=== PATIENT | female | born 1930 | race Caucasian/White ===

== ENCOUNTER → 2018-09-30 | Outpatient (CLI) | payer MEDICARE, BC ==
[~2018-09-30] MED LIST: ACETAMINOPHEN W1 TA6 PO; ALDACTONE 25MG25 M1 PO; AMOXICILLIN 50500 MG PO; ASPIRIN 32325 MG/TAB PO; BUSPAR10 MG PO; BUSPIRONE10 MG PO; BYSTOLIC10 MG PO; BYSTOLIC5 MG PO; COUMADIN 22.5 MG/TAB PO; COUMADIN 5MG5 MG/TAB PO; FERROUS SU325 MG/TAB PO; HCTZ 25MG TAB25 MG PO; HYDROCHLOR50 MG PO; INDERAL 10MG10 MG PO; INDERAL10 MG PO; LEXAPRO10 MG PO; LISINOPRIL20 MG PO; LOVASTATIN20 MG PO; LUNESTA1 MG PO; MULTAQ400 MG PO; NEXIUM 40MG40 MG PEG; NEXIUM 40MG40 MG PO; OGEN 0.6250.75 MG PO; OGEN PO; OMEGA 31000 MG PO; PAXIL 20MG20 MG PO; SYNTHROID0.1 MG PO; TIKOSYN0.125 MG PEG; TIKOSYN0.125 MG PO; TIKOSYN0.25 MG PO; VITAMIN C500 MG PO; estropipate PO
== END ==
LOC: COL.RAD 09:16
DX: K22.8 Other specified diseases of esophagus (principal); K44.9 Diaphragmatic hernia without obstruction or gangrene; Z95.2 Presence of prosthetic heart valve

== ENCOUNTER 2019-03-15 12:42 | Inpatient (IN) | payer MEDICARE, BC ==
[2019-03-15] VITALS (349 sets, daily range): BP systolic 135–145; BP diastolic 58–63; PULSE 69–73; TEMP 97.8–97.9; O2SAT 90–97
[~2019-03-15] VITALS: Ht 152.4 cm; Wt 68.3 kg
[2019-03-15 13:32] LABS: BASO # 0.1 (0.0-0.2); BASO % 1.3 % (0.0-2.0); EOS # 0.5 (0.0-0.7); EOS % 5.3 % (0-4.0); GRAN # 5.5 (1.4-6.5); HEMATOCRIT 36.2 % (37.0-47.0); HEMOGLOBIN 12.3 g/dl (12.5-16.0); LYMPH # 1.7 (1.2-3.4); LYMPH % 19.6 % (20.0-51.0); MEAN CELL VOLUME 91 fl (80.0-100.0); MEAN CORPUSCULAR HEMOGLOBIN 31 pg (27.0-31.0); MEAN CORPUSCULAR HGB CONC 34 g/dl (33.0-37.0); MEAN PLATELET VOLUME 8.8 fl (7.4-10.4); MONO # 0.8 (0.1-0.6); MONO % 9.5 % (1.7-9.3); PLATELET COUNT 315 K/mm3 (130-400); REDCELL DISTRIBUTION WIDTH-CV 14.1 % (11.5-14.5)
[2019-03-15 13:37] LABS: INR 3.1 (0.8-3.0); PROTHROMBIN TIME 37.4 SECONDS (9.7-12.8)
[2019-03-15 13:40] LABS: PARTIAL THROMBOPLASTIN TIME 43.9 SECONDS (26.0-37.0)
[2019-03-15] MEDS ORDERED: MELATIN 3 MG-11 TAB PO (13:40)
[2019-03-15] MEDS ORDERED: BUSPAR10 MG PO (13:41)
[2019-03-15] MEDS ORDERED: AMOXICILLIN 50500 MG PO (13:41)
[2019-03-15] MEDS ORDERED: TIKOSYN0.25 MG PO (13:42)
[2019-03-15] MEDS ORDERED: NEXIUM 40MG40 MG PO (13:42)
[2019-03-15] MEDS ORDERED: TYLENOL 325MG325 MG PO (13:42)
[2019-03-15] MEDS ORDERED: LEVOXYL0.1 MG PO (13:43)
[2019-03-15] MEDS ORDERED: COZAAR100 MG PO (13:43)
[2019-03-15] MEDS ORDERED: PAXIL 20MG20 MG PO (13:48)
[2019-03-15] MEDS ORDERED: ALDACTONE 25MG25 M1 PO (13:50)
[2019-03-15] MEDS ORDERED: COUMADIN4 MG PO (13:50)
[2019-03-15] MEDS ORDERED: TUMS500 MG (13:50)
[2019-03-15] MEDS ORDERED: PROBIOTIC-SUNMARK (13:51)
[2019-03-15 14:02] LABS: ALANINE AMINOTRANSFERASE 10 U/L (9-52); ALBUMIN 4.1 gm/dL (3.5-5.0); ALKALINE PHOSPHATASE 73 U/L (50-136); ANION GAP 8 mmol/L (7-16); AST,SGOT 26 U/L (15-37); BILIRUBIN,TOTAL 0.4 mg/dL (0.0-1.0); BLOOD UREA NITROGEN 14 mg/dL (7-17); CALCIUM 9.3 mg/dL (8.4-10.2); CARBON DIOXIDE 26 mmol/L (22-30); CHLORIDE 107 mmol/L (98-107); CREATININE, serum 0.87 (0.52-1.25); GLUCOSE 103 mg/dL (74-106); SODIUM 141 mmol/L (137-145)
[2019-03-15 14:14] LABS: TROPONIN-I < 0.012 ng/mL (0.000-0.035)
[2019-03-15 14:15] LABS: POTASSIUM 2.7 mmol/L (3.4-5.0)
[2019-03-15 14:38] LABS: MAGNESIUM 1.5 mg/dL (1.6-2.3)
--- NOTE | 2019-03-15 15:05 | NUR ---
Patient received in ICU room 4 connected to monitor, changed to gown, clothing/shoes placed in bag in closet. Wearing glasses. Daughter, Pat, assists with intake questions. Dr Medley in to assess.
[2019-03-15] MEDS ORDERED: PRESERVISION1 SGL PO (15:54)
[2019-03-15] MEDS ORDERED: TYLENOL PM EXTR1 TA1 PO (15:57)
[2019-03-15 22:48] LABS: CALCIUM 8.7 mg/dL (8.4-10.2); CREATININE, serum 0.78 (0.52-1.25); POTASSIUM 3.5 mmol/L (3.4-5.0)
[2019-03-16] VITALS (412 sets, daily range): BP systolic 114–162; BP diastolic 51–87; PULSE 68–84; TEMP 97.3–98.6; O2SAT 89–96
[2019-03-16 05:55] LABS: INR 2.6 (0.8-3.0); PROTHROMBIN TIME 31.6 SECONDS (9.7-12.8)
[2019-03-16 05:56] LABS: HEMOGLOBIN 10.7 g/dl (12.5-16.0); MEAN CELL VOLUME 92 fl (80.0-100.0); MEAN CORPUSCULAR HEMOGLOBIN 31 pg (27.0-31.0); MEAN CORPUSCULAR HGB CONC 34 g/dl (33.0-37.0); MEAN PLATELET VOLUME 8.8 fl (7.4-10.4); PLATELET COUNT 305 K/mm3 (130-400); RED BLOOD COUNT 3.46 M/mm3 (4.10-5.30); REDCELL DISTRIBUTION WIDTH-CV 14.3 % (11.5-14.5)
[2019-03-16 06:01] LABS: HEMATOCRIT 31.7 % (37.0-47.0)
[2019-03-16 06:02] LABS: CALCIUM 8.7 mg/dL (8.4-10.2); CREATININE, serum 0.76 (0.52-1.25); POTASSIUM 4.5 mmol/L (3.4-5.0)
[2019-03-16 06:14] LABS: MAGNESIUM 2.1 mg/dL (1.6-2.3)
[2019-03-16 06:32] LABS: BASOPHIL 1 % (0-2); EOSINOPHIL 5 % (0-4); LYMPHOCYTE 27 % (20.0-51.0); NEUTROPHILS 57 % (42.0-75.2); PLATELET ESTIMATE NORMAL (NORMAL)
--- NOTE | 2019-03-16 07:30 | NUR ---
Report received from Roshni HINDS and care resumed.
--- NOTE | 2019-03-16 08:32 | NUR ---
Pt receiving echo at this time. Dr Riggins was called and notified of consult. Will continue to follow.
--- NOTE | 2019-03-16 09:06 | NUR ---
Dr Escobar in to see pt at this time.
--- NOTE | 2019-03-16 11:31 | NUR ---
Initial visit; Patient states she is doing ok, just waiting for test results hoping to find out what is happening regarding her health. Patient has a good support system. School Plant Consultant wished her well.
--- NOTE | 2019-03-16 12:16 | NUR ---
Dr Riggins and Dr Thacker in to see pt at this time.
--- NOTE | 2019-03-16 12:58 | NUR ---
Pt to CT at this time.
--- NOTE | 2019-03-16 14:11 | NUR ---
SW met with patient to discuss discharge planning. Patient lives independently at home alone but reports her daughter/DPOA, Pat, lives close by in [place]. Patient's PCP is Dr Amanda Givens and [facility]. Patient's reports independence with all ADLs and she does not use any DME or home health services. Patient reports she does not have a copy of her DPOA-HC and he PCP does not either. Patient's reports she DPOA-HC is her daughter, Pat. Patient will be evaluated by PT and OT prior to discharge. SW will continue to follow.
--- NOTE | 2019-03-16 14:43 | NUR ---
Report called to Shilpa HINDS on medical floor. Pt to transfer to room 311. Will continue to follow.
--- NOTE | 2019-03-16 15:46 | NUR ---
Patient arrived to room 311 via wheelchair from ICU. Assisted to recliner, daughter is at bedside. Patient assisted to restroom, gait is steady, gait belt is in place. Stool specimen collected as ordered. Lungs are clear bilaterally. Heart rate is regular rate and rhythm. Abdomen is soft and nontender, bowel sounds are active to all quadrants. Skin is intact to coccyx. Does have skin tear to the right elbow, was undressed. Did apply steri strips and left open to air. No redness, warmth or drainage noted to are, bruising is observed. Does complain of pain to ribs, when up walking, no pain at rest. There is no edema noted to BLEs. Reviewed medications with daughter and she states they are correct. Patient does state she "dumps" after she eats each meal/snack. Ice water and tissues provided. Call light and personal items are within reach.
--- NOTE | 2019-03-16 19:40 | NUR ---
Shift assessment complete. Pt resting in bedside recliner, awake, a&o, cooperative c cares. 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 Pt denies any other c/o. INT patent. Tele in place. Pt denies further needs. Call light in reach, bed alarm on. Will continue to monitor.
[2019-03-17 04:26] VITALS: BP 121/76; PULSE 70; TEMP 97.8
[2019-03-17 06:10] LABS: BASO # 0.1 (0.0-0.2); BASO % 1.1 % (0.0-2.0); EOS # 0.4 (0.0-0.7); EOS % 5.5 % (0-4.0); GRAN # 4.3 (1.4-6.5); GRAN % 60.9 % (42.2-75.2); HEMOGLOBIN 11.2 g/dl (12.5-16.0); LYMPH # 1.5 (1.2-3.4); LYMPH % 21.2 % (20.0-51.0); MEAN CELL VOLUME 93 fl (80.0-100.0); MEAN CORPUSCULAR HEMOGLOBIN 31 pg (27.0-31.0); MEAN CORPUSCULAR HGB CONC 33 g/dl (33.0-37.0); MEAN PLATELET VOLUME 9.2 fl (7.4-10.4); MONO # 0.8 (0.1-0.6); PLATELET COUNT 287 K/mm3 (130-400); RED BLOOD COUNT 3.63 M/mm3 (4.10-5.30); REDCELL DISTRIBUTION WIDTH-CV 13.8 % (11.5-14.5)
[2019-03-17 06:12] LABS: HEMATOCRIT 33.6 % (37.0-47.0)
[2019-03-17 06:24] LABS: CREATININE, serum 0.78 (0.52-1.25); MAGNESIUM 1.8 mg/dL (1.6-2.3); POTASSIUM 4.2 mmol/L (3.4-5.0)
--- NOTE | 2019-03-17 07:00 | NUR ---
Patient is resting in bed on left side. Does arouse when addressed. Respirations are even and nonlabored. Call light and personal items are within reach.
[2019-03-17 08:14] VITALS: BP 131/45; PULSE 48; TEMP 98.1
[2019-03-17 08:34] LABS: INR 1.9 (0.8-3.0); PROTHROMBIN TIME 22.5 SECONDS (9.7-12.8)
[2019-03-17] MEDS ORDERED: QUESTRAN LI4 GM/5 GM PO (08:55)
[2019-03-17] MEDS ORDERED: NORCO 325 MG-51 TAB PO (08:58)
[2019-03-17] MEDS ORDERED: SLOW-MAG71.5 MG PO (08:59)
--- NOTE | 2019-03-17 09:03 | NUR ---
PT is recommending home. SW then attended clinical rounds. The patient plan to return back home and will discharge today, 03/17. The patient requested that SW contact one of her daughters for transport back home. SW attempted to contact both her daughters, Pat and Katie. SW left them a voicemail. SW to try to contact them again, otherwise no other additional needs.
--- NOTE | 2019-03-17 11:15 | NUR ---
Initial visit; Nela thanked Loan Analyst for looking in on her, listening and offering God's blessings.
--- NOTE | 2019-03-17 16:27 | NUR ---
Patient discharged home, discharge teaching and instructions given to patient along with follow up appointments. Personal belongings sent with patient. Daughter here to pick patient up. Accompanied to private car via wheelchair and via lisa staff.
[2019-03-18 17:27] LABS: STOOL CHLORIDE 140 mmol/L (()); STOOL MAGNESIUM 8 mg/dL (()); STOOL POTASSIUM 78 mmol/L (()); STOOL SODIUM 100 mmol/L (())
[2019-03-18 18:07] LABS: STOOL OSMOLALITY 644 mOsm/kg (())
== END 2019-03-17 15:00 | disposition home or self-care (01) | DRG 310 ==
LOC: COL.ER 12:42 → MEDICAL 13:54 → ICU 13:54 → MEDICAL 03-16 14:54
PROVIDERS: Family Medicine; Internal Medicine Gastroenterology; Nurse Practitioner Family; Physician Assistant; ADMIT Internal Medicine
PROC: 4B02XSZ Measurement of Cardiac Pacemaker, External Approach (ICD-10-PCS; principal; 2019-03-15)
DX: I47.1 Supraventricular tachycardia (principal); E86.0 Dehydration; I27.20 Pulmonary hypertension, unspecified; I08.1 Rheumatic disorders of both mitral and tricuspid valves; Z91.81 History of falling; E87.6 Hypokalemia; E83.42 Hypomagnesemia; I11.9 Hypertensive heart disease without heart failure; E89.0 Postprocedural hypothyroidism; M81.0 Age-related osteoporosis without current pathological fracture; I48.0 Paroxysmal atrial fibrillation; K21.9 Gastro-esophageal reflux disease without esophagitis; M19.90 Unspecified osteoarthritis, unspecified site; I25.2 Old myocardial infarction; K58.0 Irritable bowel syndrome with diarrhea; K30 Functional dyspepsia; R00.1 Bradycardia, unspecified; Z90.49 Acquired absence of other specified parts of digestive tract; Z86.711 Personal history of pulmonary embolism; Z79.01 Long term (current) use of anticoagulants; Z45.018 Encounter for adjustment and management of other part of cardiac pacemaker; Z79.890 Hormone replacement therapy
CPT/HCPCS: 99233-AI; 99239; J3475; J3480; J7030